=== PATIENT | female | born 1995 | race Hispanic/Latino ===

== ENCOUNTER → 2017-07-03 | Outpatient (CLI) | payer OTHER ==
--- NOTE | 2017-07-03 11:59 | Diagnostic Imaging Report ---
PROCEDURE: Transabdominal ultrasound imaging of the pelvis was performed with [place]عر[place] scale and color Doppler images. Per routine, transvaginal imaging was not performed on this patient, as she is not sexually active. COMPARISON: None. INDICATIONS: PELVIC PAIN SYNDROME/AMENORRHEA FINDINGS: UTERUS: The uterus is anteverted and measures 6.1 x 2.0 x 4.3 cm. No uterine masses are identified. The endometrial echocomplex is normal in appearance and measures 0.6 cm. OVARIES/ADNEXA: The right ovary measures 2.8 x 2.2 x 2.4 cm. There is a hypoechoic, avascular area in the right ovary with reticular internal echoes. The left ovary measures 2.0 x 1.9 x 1.9 cm. There is a simple cyst which abuts the left ovary which measures 2.0 x 1.9 x 1.9 cm. Otherwise no adnexal masses. No free fluid in the pelvis. IMPRESSION: 1. No specific findings to explain amenorrhea. 2. Hypoechoic, mildly complex lesion in the right ovary probably represents a benign hemorrhagic cyst. Consider followup ultrasound in 6-12 weeks to ensure resolution. 3. A 2.0 cm simple cyst in the left adnexa is likely a benign follicular cyst Dictated by: Reagan Suárez M.D. on 07/03/2017 at 12:00 Electronically approved by: Reagan Suárez M.D. on 07/03/2017 at 12:00
== END ==
LOC: US 10:04
PROVIDERS: ATTEND Family Medicine
DX: R10.2 Pelvic and perineal pain (principal); N91.2 Amenorrhea, unspecified; N94.89 Other specified conditions associated with female genital organs and menstrual cycle
CPT/HCPCS: 76856